=== PATIENT | female | born 1945 | race Caucasian/White ===

== ENCOUNTER 2022-03-13 08:42 | Emergency (ER) | payer MEDICARE, SELFPAY ==
[2022-03-13 08:48] VITALS: BP 157/95; PULSE 83; RESP 20; TEMP 36.4; O2SAT 100; BMI 31.4
--- NOTE | 2022-03-13 09:22 | EX.ED.DYSGE1 ---
HPI <RONAL Morris - Last Filed: 03/13/22 11:36> History of Present Illness Chief Complaint: Abd Pain Narrative Narrative: 76-year-old female with history of diabetes, hypertension, upper lipidemia who also has seizures when she is stressed or ill. Patient presents to the emergency department with complaints of 2 days of generalized abdominal pain, nausea, vomiting, diarrhea. Patient states last evening, she had 5 bouts of diarrhea which was watery. She has no history of antibiotic use, no history of C. difficile. Patient states that she feels weak, is concerned that she is dehydrated as well as having history of kidney problems. Patient denies any fevers chills. Denies any blood in stool or vomit. PFSH <RONAL Morris - Last Filed: 03/13/22 11:36> PFSH Medical History (Updated 03/15/22 @ 15:[address] Lorri Tinajero, DO) Depression GERD (gastroesophageal reflux disease) History of anxiety History of open sigmoidectomy HTN (hypertension) Hx of renal calculi Seizure Home Medications clonazepam [Klonopin] 0.5 mg PO BID PRN PRN 03/13/22 [History Last Taken Unknown] lisinopril 20 mg PO DAILY 03/13/22 [History Last Taken Unknown] ondansetron 4 mg PO Q8H PRN #10 tab 03/13/22 [Rx Last Taken Unknown] pantoprazole 40 mg PO DAILY 03/13/22 [History Last Taken Unknown] pregabalin [Lyrica] 75 mg PO BID 03/13/22 [History Last Taken Unknown] sertraline 50 mg PO QHS 03/13/22 [History Last Taken Unknown] Allergy/AdvReac Type Severity Reaction Status Date / Time ciprofloxacin Allergy Other Verified 03/13/22 08:44 Milk Containing Products Allergy Other Verified 03/13/22 08:44 dicyclomine AdvReac Vomiting Verified 03/13/22 08:48 doxycycline AdvReac Upset Verified 03/13/22 08:48 Stomach Surgical History (Updated 03/13/22 @ 08:57 by Becca Ibanez) History of bilateral knee arthroplasty Hx of appendectomy Hx of hernia repair Hx of hysterectomy Social History (Updated 03/13/22 @ 08:57 by Becca Ibanez) number of children: 3 current occupational status: retired Smoking Status: Never smoker ROS <RONAL Morris - Last Filed: 03/13/22 11:36> ROS ED ROS Narrative Constitutional: Negative for fever, chills, weight loss, weakness Eyes: Negative for vision loss, vision change, double vision ENT: Negative for any sore throat, ear pain, congestion Cardiovascular: Negative for any chest pain, tightness, palpitations, racing heartbeat Respiratory: Negative for any cough, sputum production, hemoptysis, shortness of breath, shortness of breath on exertion, orthopnea Gastrointestinal: Negative for any constipation, blood in stool, blood in vomit. Positive for abdominal pain, nausea, vomiting, diarrhea : Negative for any urinary frequency, incontinence, dysuria, retention, blood in urine Muscle skeletal: Negative for any muscle joint pain, stiffness, myalgias, arthralgias, neck pain, back pain Neurological: Negative for any headache, dizziness, syncope, numbness or tingling Skin: Negative for any rashes, lumps, itching, abrasions, lacerations Psychiatric: Negative for any depression, anxiety, stress, suicidal ideation, homicidal ideation Hematologic: Negative for any easy bruising, excessive bruising, easy bleeding Allergies: Negative for any eczema, hives, rash EXAM <RONAL Morris - Last Filed: 03/13/22 11:36> Physical Exam Narrative Exam Narrative: Vital signs reviewed. Alert and orient x4. Patient states that the seizures happen frequently, where she pulls to the right. States that this is nothing new for her. HEET: Head normocephalic atraumatic, TMs clear bilaterally. Posterior pharynx is clear, dry mucous membranes. Nares clear bilaterally. Neck: Supple with no lymphadenopathy or tenderness. No signs of meningismus, negative jolt sign. Cardiac: Regular rate and rhythm no murmurs gallops or rubs, equal peripheral pulses bilaterally. Respiratory: Lungs clear to auscultation bilaterally. No chest tenderness. Abdomen: Soft, nondistended. No abdominal bruit or pulsatile masses. No hepatosplenomegaly patient does have some tenderness to the right lower quadrant as well as the mid abdomen. Active bowel sounds in all quadrants. Extremities: No peripheral edema, no signs of gross trauma or deformity. Active full range of motion of all extremities. Neuro: Cranial nerves II through XII intact, no focal neurological deficits. Skin: Clean dry and intact with no rash, purpura, petechiae, vesicles or pustules. Backslash flank: No CVA tenderness, no midline spinal tenderness, no deformity. Psych: Normal mood and affect. No SI, HI or acute psychosis. Const Vital Signs: 03/13/22 08:48 03/13/22 10:44 Temperature 97.5 F L Temperature Source Temporal Pulse Rate 83 78 Respiratory Rate 20 H 19 H Blood Pressure 157/95 H 139/74 H Blood Pressure Mean 115 95 Pulse Ox 100 96 Oxygen Delivery Method Room Air Room Air Positive well nourished and well developed General Appearance ED: well developed <Dr. Lorri Tinajero DO - Last Filed: 03/15/22 15:55> Physical Exam Const Vital Signs: 03/13/22 08:48 03/13/22 10:44 Temperature 97.5 F L Temperature Source Temporal Pulse Rate 83 78 Respiratory Rate 20 H 19 H Blood Pressure 157/95 H 139/74 H Blood Pressure Mean 115 95 Pulse Ox 100 96 Oxygen Delivery Method Room Air Room Air MDM <RONAL Morris - Last Filed: 03/13/22 11:36> [facility] MDM Narrative Medical decision making narrative: Patient appears well, patient appears nontoxic, vital signs are stable. Patient presents to the emergency department with complaints of nausea, vomiting, generalized abdominal pain for 2 days. She did receive a full abdominal work-up, patient CBC with leukocytosis with a white blood count of 13.8, patient's chemistries show slight bump in her creatinine however this could be secondary to her nausea and vomiting. Patient's lactic was only slightly elevated at 2.1 patient's urinalysis did show some blood however no infection. Patient received IV fluids, IV Zofran, this did help the patient. Patient received a repeat dose of IV Zofran, she will pass an oral challenge. She will be given nausea medicine for home. She will follow-up with her PCP and ensure that she stays hydrated. Patient is stable for discharge. Strict return for any worsening back pain, fever chills nausea vomiting. Lab Data Labs: Laboratory Results - last 24 hr 03/13/22 03/13/22 03/13/22 08:48 08:48 08:48 WBC 13.8 H RBC 5.64 H Hgb 16.1 H Hct 48.1 H MCV 85.3 MCH 28.5 MCHC 33.5 RDW Std Deviation 44.1 H RDW Coeff of Kenneth 14.2 Plt Count 326 MPV 12.7 H Immature Gran % (Auto) 0.400 Neut % (Auto) 52.6 Lymph % (Auto) 38.9 [place] % (Auto) 6.9 Eos % (Auto) 0.7 Baso % (Auto) 0.5 Absolute Neuts (auto) 7.2 Absolute Lymphs (auto) 5.35 H Nucleated RBC % 0 Differential Comment SCANNED Sodium 138 Potassium 4.2 Chloride 105 Carbon Dioxide 21.0 Anion Gap 12 BUN 32 H Creatinine 1.15 H Estim Creat Clear Calc 41.74 Est GFR (MDRD) Af Amer 59 L Est GFR (MDRD) Non-Af 49 L BUN/Creatinine Ratio 27.8 H Glucose 172 H Lactic Acid Calcium 9.5 Total Bilirubin 0.90 AST 20 ALT 24 Alkaline Phosphatase 87 Total Protein 7.8 Albumin 3.9 Globulin 3.9 Albumin/Globulin Ratio 1.0 Lipase 69 L Urine Color Urine Clarity Urine pH Ur Specific [place] Urine Protein Urine Glucose (UA) Urine Ketones Urine Occult Blood Urine Nitrite Urine Bilirubin Urine Urobilinogen Ur Leukocyte Esterase Urine RBC Urine WBC Ur Squamous Epith Cells Urine Bacteria Urine Mucus 03/13/22 03/13/22 09:50 09:51 WBC RBC Hgb Hct MCV MCH MCHC RDW Std Deviation RDW Coeff of Kenneth Plt Count MPV Immature Gran % (Auto) Neut % (Auto) Lymph % (Auto) [place] % (Auto) Eos % (Auto) Baso % (Auto) Absolute Neuts (auto) Absolute Lymphs (auto) Nucleated RBC % Differential Comment Sodium Potassium Chloride Carbon Dioxide Anion Gap BUN Creatinine Estim Creat Clear Calc Est GFR (MDRD) Af Amer Est GFR (MDRD) Non-Af BUN/Creatinine Ratio Glucose Lactic Acid 2.1 H* Calcium Total Bilirubin AST ALT Alkaline Phosphatase Total Protein Albumin Globulin Albumin/Globulin Ratio Lipase Urine Color Yellow Urine Clarity Clear Urine pH 5.0 Ur Specific [place] 1.030 Urine Protein 30 H Urine Glucose (UA) 50 H Urine Ketones 15 H Urine Occult Blood 250 H Urine Nitrite Negative Urine Bilirubin Negative Urine Urobilinogen Normal Ur Leukocyte Esterase Negative Urine RBC 5-10 SEEN Urine WBC 0 SEEN Ur Squamous Epith Cells 0-5 SEEN Urine Bacteria RARE Urine Mucus 0 SEEN Radiography Diagnostic Testing: Clinical Impression(s) from Imaging Studies Abdomen/Pelvis CT 03/13/22 09:59 IMPRESSION: 4 mm nonobstructing stone in the dependent portion of the right renal pelvis. Electronically Signed: Bryan Hare MD at 11:10 EDT , <Dr. Lorri Tinajero, DO - Last Filed: 03/15/22 15:55> [facility] Narrative Medical decision making narrative: I have personally performed a face to face assessment of the patient and have reviewed the DOMINGUEZ Note. I performed a substantive portion of the visit including all aspects of the following. My zaidi findings include: History is patient is a 76-year-old female with history of kidney stones presenting with generalized malaise, diarrhea, abdominal pain and vomiting. Patient denies any risk factors for C. difficile. States the pain and discomfort is different than her kidney stones. Pain is worse in her epigastric region. Exam is Nontoxic, no acute distress. Mildly tacky mucosal membranes. Neck is supple. Heart regular rate and rhythm. Lungs clear to auscultation bilaterally. No CVA tenderness. Abdomen is soft with some mild epigastric tenderness palpation. Negative Main sign. No focal neurologic deficits. No seizure-like activity reported. No rash. Medical Decision Making Patient is given IV Zofran and IV fluids with improvement in her symptoms. She is redosed with Zofran. She is able tolerate p.o. She is a mild lactic acidosis of 2.1 and a white blood cell count of 13.8. She is not able to provide a stool sample in the emergency room. Her hemoglobin is slightly elevated at 16.1 but I suspect this is hemoconcentrated. Creatinine is at 1.15. We do not have a baseline. CT of abdomen pelvis shows a nonobstructing 4 mm stone in the dependent portion of the right renal pelvis. This likely explains her hematuria. This pain/symptoms is not really consistent with a kidney stone I suspect she has a component of gastroenteritis as well. Given the patient's improvement of symptoms and no further vomiting or diarrhea in the ER we will be discharged home with a prescription for Zofran. Patient and spouse are agreeable with this plan of care. No acute surgical process requiring admission or surgical consult at this time. Other additions or changes: [None] Lab Data Attestation: I reviewed the patient's lab results. Labs: Laboratory Results - last 24 hr 03/13/22 03/13/22 03/13/22 08:48 08:48 08:48 WBC 13.8 H RBC 5.64 H Hgb 16.1 H Hct 48.1 H MCV 85.3 MCH 28.5 MCHC 33.5 RDW Std Deviation 44.1 H RDW Coeff of Kenneth 14.2 Plt Count 326 MPV 12.7 H Immature Gran % (Auto) 0.400 Neut % (Auto) 52.6 Lymph % (Auto) 38.9 [place] % (Auto) 6.9 Eos % (Auto) 0.7 Baso % (Auto) 0.5 Absolute Neuts (auto) 7.2 Absolute Lymphs (auto) 5.35 H Nucleated RBC % 0 Differential Comment SCANNED Sodium 138 Potassium 4.2 Chloride 105 Carbon Dioxide 21.0 Anion Gap 12 BUN 32 H Creatinine 1.15 H Estim Creat Clear Calc 41.74 Est GFR (MDRD) Af Amer 59 L Est GFR (MDRD) Non-Af 49 L BUN/Creatinine Ratio 27.8 H Glucose 172 H Lactic Acid Calcium 9.5 Total Bilirubin 0.90 AST 20 ALT 24 Alkaline Phosphatase 87 Total Protein 7.8 Albumin 3.9 Globulin 3.9 Albumin/Globulin Ratio 1.0 Lipase 69 L Urine Color Urine Clarity Urine pH Ur Specific [place] Urine Protein Urine Glucose (UA) Urine Ketones Urine Occult Blood Urine Nitrite Urine Bilirubin Urine Urobilinogen Ur Leukocyte Esterase Urine RBC Urine WBC Ur Squamous Epith Cells Urine Bacteria Urine Mucus 03/13/22 03/13/22 09:50 09:51 WBC RBC Hgb Hct MCV MCH MCHC RDW Std Deviation RDW Coeff of Kenneth Plt Count MPV Immature Gran % (Auto) Neut % (Auto) Lymph % (Auto) [place] % (Auto) Eos % (Auto) Baso % (Auto) Absolute Neuts (auto) Absolute Lymphs (auto) Nucleated RBC % Differential Comment Sodium Potassium Chloride Carbon Dioxide Anion Gap BUN Creatinine Estim Creat Clear Calc Est GFR (MDRD) Af Amer Est GFR (MDRD) Non-Af BUN/Creatinine Ratio Glucose Lactic Acid 2.1 H* Calcium Total Bilirubin AST ALT Alkaline Phosphatase Total Protein Albumin Globulin Albumin/Globulin Ratio Lipase Urine Color Yellow Urine Clarity Clear Urine pH 5.0 Ur Specific [place] 1.030 Urine Protein 30 H Urine Glucose (UA) 50 H Urine Ketones 15 H Urine Occult Blood 250 H Urine Nitrite Negative Urine Bilirubin Negative Urine Urobilinogen Normal Ur Leukocyte Esterase Negative Urine RBC 5-10 SEEN Urine WBC 0 SEEN Ur Squamous Epith Cells 0-5 SEEN Urine Bacteria RARE Urine Mucus 0 SEEN Radiography Diagnostic Testing: Clinical Impression(s) from Imaging Studies Abdomen/Pelvis CT 03/13/22 09:59 IMPRESSION: 4 mm nonobstructing stone in the dependent portion of the right renal pelvis. Electronically Signed: Bryan Hare MD at 11:10 EDT , Discharge Plan Triage Chief Complaint: Abd Pain ED Midlevel Provider: Brian Yu ED Provider: Lorri Tinajero Dx/Rx/DC Orders Clinical Impression: Gastroenteritis, Acute dehydration Instructions: ED Gastroenteritis, Noninfectious Prescriptions: New ondansetron 4 mg tablet,disintegrating 4 mg PO Q8H PRN (Reason: nausea and vomiting) Qty: 10 RF: 0 No Action lisinopril 20 mg Tablet 20 mg PO DAILY RF: 0 clonazepam [Klonopin] 0.5 mg Tablet 0.5 mg PO BID PRN PRN (Reason: Anxiety) RF: 0 pantoprazole 40 mg Tablet,Delayed Release (Dr/Ec) 40 mg PO DAILY RF: 0 sertraline 50 mg Tablet 50 mg PO QHS RF: 0 pregabalin [Lyrica] 75 mg Capsule 75 mg PO BID RF: 0 Referrals: [facility] Aguilar [Other] Activity Restrictions/Additional Instructions: Ensure that you stay hydrated. Use nausea medicine as needed, you have a 4 mm nonobstructing stone on the right side Print Language: Welsh Disposition Disposition: Home, Self Care Discharge Date/Time: 03/13/22 11:59
[2022-03-13 09:23] LABS: Absolute Lymphocyte Count 5.35 X10^3/uL (0.83-4.51); Absolute Neutrophil Count 7.2 X10^3/uL (2.0-7.7); Basophil# 0.07 X10^3/uL; Basophil% 0.5 % (0-1); Eosinophil# 0.09 X10^3/uL; Eosinophils% 0.7 % (0-5); Hematocrit 48.1 % (37-47); Hemoglobin 16.1 g/dL (12.0-15.0); Lymphocyte # 5.35 X10^3/ul (0.83-4.51); Lymphocyte % 38.9 % (19-41); Mean Corp Hgb Conc 33.5 g/dL (32-36); Mean Corpuscular Hgb 28.5 pg (27.0-32.0); Mean Corpuscular Volume 85.3 fL (81-99); Mean Platelet Vol. 12.7 fl (6.2-12.0); Monocyte# 0.95 X10^3/uL; Monocyte% 6.9 % (0-10); NRBC Flagged by Analyzer 0 % (0-5); Neutrophil # 7.24 X10^3/uL (2.7-7.7); Neutrophil % 52.6 % (47-70); POSITIVE DIFFERENTIAL YES; POSITIVE MORPHOLOGY YES; Platelet Count 326 K/mm3 (150-450); RBC Distribution Width CV 14.2 % (11.6-14.6); RBC Distribution Width SD 44.1 fl (35.1-43.9); Red Blood Count 5.64 M/mm3 (4.2-5.4); White Blood Count 13.8 K/mm3 (4.4-11.0)
[2022-03-13 09:26] LABS: Differential Indicated SCAN CRITERIA MET
[2022-03-13] MEDS: 0.9% Normal Saline 1,000 ML 1000 ML IV (09:33)
[2022-03-13] MEDS: Ondansetron 4 MG/2 ML Vial IV ×2 (09:34→11:42)
[2022-03-13 09:40] LABS: AST(SGOT) 20 U/L (15-37); Alanine Aminotransfer ALT/SGPT 24 U/L (13-56); Albumin, Serum 3.9 g/dL (3.2-5.0); Alkaline Phosphatase 87 U/L (45-117); Anion Gap 12 (5-15); BUN 32 mg/dL (7-18); BUN/Creat Ratio 27.8 RATIO (10-20); Calcium,Total 9.5 mg/dL (8.5-10.1); Chloride 105 mmol/L (98-107); Creatinine, Serum 1.15 mg/dL (0.55-1.02); EST Glomerular Filtration Rate 49 mL/min (>60); Est Glom Filt Rate - Afr Amer 59 mL/min (>60); Estimated Creatinine Clearance 41.74 ml/min; Globulin 3.9 g/dL (2.2-4.2); Glucose 172 mg/dL (74-106); Potassium 4.2 mmol/L (3.5-5.1); Protein, Total 7.8 g/dL (6.4-8.2); Sodium Level 138 mmol/L (136-145)
[2022-03-13 09:44] LABS: Differential Comment SCANNED
[2022-03-13 09:56] LABS: Mucous, Urine 0 SEEN /hpf (<or=2+); White Blood Cells 0 SEEN /hpf (0-5)
[2022-03-13 09:58] LABS: Lipase 69 U/L (73-393)
--- NOTE | 2022-03-13 09:59 | CT_ITS ---
STUDY: CT ABDOMEN AND PELVIS WITH CONTRAST REASON FOR EXAM: Female, 76 years old. Abdominal pain RADIATION DOSAGE (If Supplied By Facility): CTDIvol = ( 20.09 ) mGy, DLP = ( 1015.87 ) mGycm TECHNIQUE: Transaxial images were obtained from the dome of the diaphragm to the symphysis pubis without oral contrast. IV 75mL Isovue-300 was administered. Sagittal and coronal images were reconstructed. Individualized dose optimization techniques were used for this CT. COMPARISON: None. FINDINGS: The visualized lung bases are unremarkable. The visualized portions of the heart are within normal limits. Normal liver. Normal gallbladder and extrahepatic biliary system. Normal spleen. Normal pancreas. Normal bilateral adrenal glands. 1.5 cm cyst in the midsection of right kidney. 4 mm nonobstructing stone in the dependent portion of the right renal pelvis. Normal left kidney. Normal visualized stomach. Normal small intestine. Normal colon. There is non-visualization of the appendix. Normal abdominal aorta. Normal inferior vena cava. Normal retroperitoneum. Normal urinary bladder. Normal abdominal wall. 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/Abdomen/Pelvis W IV Cont ONLY IMPRESSION: 4 mm nonobstructing stone in the dependent portion of the right renal pelvis. Electronically Signed: Bryan Hare MD at 11:10 EDT ,
[2022-03-13 10:11] LABS: Color, Urine Yellow (Yellow); Glucose, Dipstick 50 mg/dl (Normal); Ketone-Dipstick 15 mg/dl (Negative); Leukocyte Esterase-Dipstick Negative /ul (Negative); Nitrite-Dipstick Negative (Negative); Occult Blood-Urine 250 /ul (Negative); Protein-Dipstick 30 mg/dl (Negative); Urine Bilirubin Dipstick Negative (Negative); Urine Clarity Clear (Clear); Urine Urobilinogen Normal (Normal)
[2022-03-13 10:19] LABS: Bacteria RARE /hpf (None Seen); Red Blood Cells-Urine 5-10 SEEN /hpf (0-5); Squamous Epithelial Cells - UA 0-5 SEEN /hpf (5-10)
[2022-03-13 10:34] LABS: Lactic Acid 2.1 mmol/L (0.4-1.9)
[2022-03-13 10:44] VITALS: BP 139/74; PULSE 78; RESP 19; O2SAT 96
[2022-03-13 11:53] VITALS: BP 139/74; PULSE 71; RESP 14; O2SAT 94
[2022-03-13 13:57] LABS: Reflex Lactate? Y
== END 2022-03-13 11:59 | disposition home or self-care (01) ==
PROVIDERS: Nurse Practitioner; Emergency Provider Emergency Medicine; Visit Provider Emergency Medicine
DX: K52.9 Noninfective gastroenteritis and colitis, unspecified (principal); E86.0 Dehydration; I10 Essential (primary) hypertension; K21.9 Gastro-esophageal reflux disease without esophagitis; F32.A Depression, unspecified; Z79.899 Other long term (current) drug therapy
CPT/HCPCS: 74177; 80053; 81001; 83605; 83690; 85025; 96361; 96374; 96376; 99285; J7030; Q9967; A4216; J2405